=== PATIENT | female | born 1980 | race Caucasian/White ===

== ENCOUNTER 2022-10-05 17:30 | Emergency (ER) | payer OTHER, SELFPAY ==
[2022-10-05 17:39] VITALS: BP 147/99; PULSE 100; RESP 20; TEMP 36.8; O2SAT 98; BMI 28.9
--- NOTE | 2022-10-05 18:12 | CT_ITS ---
[address] [address] Patient Name: JUAN PABLO GREEN MRN: [id number] date: 1980 Sex: F Assigned Patient Location: ER Current Patient Location: .[facility] Accession/Order Number: [id number] Exam Date: 10/05/2022 19:05 Report Date: 10/05/2022 20:01 At the request of: EDGARDO AVALOS Procedure: CT abdomen pelvis w con EXAM: CT abdomen pelvis w con REASON FOR EXAM: Female, 42 years, Abdominal pain. TECHNIQUE: Computed tomography of the abdomen and pelvis is performed in the axial projection from the lung bases to the pubic symphysis. Sagittal and coronal reconstructed images are performed. Dose reduction techniques were achieved by using automated exposure control and/or adjustment of mA and/or KVP according to patient size and/or use of iterative reconstruction technique. A total of 100 mL Omnipaque 300 IV contrast was given. Study was performed without oral contrast. COMPARISON: None. FINDINGS: Lung bases: The lung bases are clear. There is no pleural effusion. The visualized portions of the heart are unremarkable. Liver: The liver has decreased attenuation consistent with steatosis. There is a prominent somewhat lobular cyst in the posterior right lobe of the liver, measuring approximately 5.8 x 5 cm. At least 2 additional smaller cysts are seen. There are several small enhancing lesions laterally within the right lobe of the liver, suggestive of hemangiomas. The liver appears enlarged. Gallbladder: The gallbladder is normal. Spleen: The spleen is normal. Pancreas: The pancreas is normal. Adrenal glands: The adrenal glands are normal bilaterally. Right kidney: The kidney is normal in size. There are a few nonobstructing calculi within the right kidney, measuring up to 3 mm. No hydronephrosis. Left kidney: The kidney is normal in size. There are several nonobstructing calculi within the left kidney, the largest measuring approximately 3 mm. No hydronephrosis. Stomach: The stomach is normal. Small bowel: The small bowel is normal. Large bowel: The colon is normal. Appendix: The appendix is visualized, and is normal. Aorta: The aorta is normal. IVC: The IVC is normal. Retroperitoneum: Normal retroperitoneum. Bladder: The bladder is normal. Pelvic organs: Normal uterus. Abdominal wall: Normal abdominal wall. Osseous structures: Normal bony structures. CT/CT abdomen pelvis w con IMPRESSION: No bowel obstruction or acute renal pathology. Normal appendix. Hepatic steatosis and hepatomegaly. There are several low-attenuation lesions within the liver likely representing cysts. There are several small enhancing lesions laterally within the right lobe of the liver which may represent hemangiomas. This can be further characterized by MRI. Electronically authenticated by: JORGE A RIVERO Date: 10/05/2022 20:01
--- NOTE | 2022-10-05 18:28 | ED_ITS ---
HPI - Abdominal Pain General Chief Complaint: Abdominal Pain Stated Complaint: Adbominal Pain Time Seen by Provider: 10/05/22 17:47 Source: patient Mode of arrival: walk-in Limitations: no limitations History of Present Illness HPI narrative: patient is a 42-year-old female who presents to the emergency department for the evaluation of diffuse pain in the lower abdomen. She states for the last 3-4 hours she has had pain from her belly button down . She describes the pain as razor blades . She states she had similar pain several years ago but no cause for the pain was found. She was treated for irritable bowel syndrome in the past but states she has not had any diarrhea with her symptoms today. She had a normal bowel movement this morning. She has had no fevers. She reports nausea and states since the pain has started she has been breathing fast and feels some tightness in her chest. She states the low abdominal pain radiates to the back, she has a history of kidney stones but states this does not feel similar. No medications taken prior to arrival. She has had no previous abdominal surgeries and is not concerned for . Related Data Home Medications Medication Instructions Recorded Confirmed Saccharomyces boulardii 250 mg 250 mg PO BID 10/05/22 10/05/22 capsule (Florastor) famotidine 20 mg tablet 20 mg PO Q12H 10/05/22 10/05/22 hydrochlorothiazide 12.5 mg tablet 12.5 mg PO Q12H 10/05/22 10/05/22 losartan 25 mg tablet 25 mg PO DAILY 10/05/22 10/05/22 Previous Rx's Medication Instructions Recorded dicyclomine 20 mg tablet 20 mg PO QID PRN abdominal pain 10/05/22 #12 tabs ketorolac 10 mg tablet 10 mg PO TID PRN pain #10 tabs 10/05/22 ondansetron 4 mg disintegrating 4 mg PO Q6H PRN nausea and 10/05/22 tablet vomiting #12 tabs Allergies Allergy/AdvReac Type Severity Reaction Status Date / Time buspirone [From BuSpar] Allergy Intermediate Agitated Verified 10/05/22 17:44 topiramate [From Topamax] Allergy Intermediate Verified 10/05/22 17:44 tramadol Allergy Intermediate Confusion Verified 10/05/22 17:44 Review of Systems ROS Constitutional Denies: fever or chills Ears, nose, mouth, and throat Denies: throat pain Cardiovascular Reports: chest pain Respiratory Denies: shortness of breath or cough Gastrointestinal Reports: abdominal pain and nausea; Denies: vomiting or diarrhea Genitourinary Denies: painful urination Musculoskeletal Reports: back pain; Denies: neck pain Integumentary/Breast Denies: rash Neurological Denies: headache Hematologic/Lymphatic Denies: easy bruising Exam Narrative Exam Narrative: Gen.: Awake, alert, in no distress Head: Normocephalic, atraumatic ENT: Moist mucous membranes Respiratory: No respiratory distress, lungs clear bilaterally Cardio: Regular rate and rhythm Gastrointestinal: Abdomen is soft, nondistended and diffusely mildly tender to palpation across the bilateral lower quadrants and suprapubic abdomen. No guarding or rebound Extremities: Moves extremities equally Psych: Normal mood and affect Neuro: No focal neuro deficit Skin: Warm, dry, intact Constitutional Vital Signs, click to edit/add: Last Vital Signs Temp 98.2 F 10/05/22 17:39 Pulse 74 10/05/22 19:25 Resp 16 10/05/22 19:25 BP 129/93 H 10/05/22 19:25 Pulse Ox 96 10/05/22 19:25 O2 Del Method Room Air 10/05/22 19:25 Course Vital Signs Vital signs: Vital Signs Temperature 98.2 F 10/05/22 17:39 Pulse Rate 100 H 10/05/22 17:39 Respiratory Rate 20 10/05/22 17:39 Blood Pressure 147/99 H 10/05/22 17:39 Pulse Oximetry 98 10/05/22 17:39 Oxygen Delivery Method Room Air 10/05/22 17:39 Temperature 98.2 F 10/05/22 17:39 Pulse Rate 74 10/05/22 19:25 Respiratory Rate 16 10/05/22 19:25 Blood Pressure 129/93 H 10/05/22 19:25 Pulse Oximetry 96 10/05/22 19:25 Oxygen Delivery Method Room Air 10/05/22 19:25 MDM - Abdominal Pain MDM Narrative Medical decision making narrative: on arrival to the Emergency Room, the patient was treated with IV fluids, morphine, Zofran, Toradol, Levsin. Pain and nausea improved. She had one episode of emesis prior to medication administration. Lab studies are stable although the patient has minimal leukocytosis and minimal elevation of LFTs. bilirubin and lipase are normal. She has no tenderness of the right upper quadrant. CT of the abdomen and pelvis was performed showing the patient has liver hemangioma and liver cysts but no evidence of acute process. abdomen is soft and benign on recheck at discharge, vital signs within normal limits. Patient will be discharged to follow-up with PCP. Return to the emergency department if symptoms change or worsen. Medical Records Attestation: I reviewed the patient's medical records. Lab Data Attestation: I reviewed the patient's lab results. Labs: Lab Results 10/05/22 Range/Units 18:00 WBC 13.3 H (4.0-11.0) 10^3/uL RBC 4.29 (4.20-5.40) 10^6/uL Hgb 15.0 (12.0-16.0) g/dL Hct 43.1 (36.0-48.0) % MCV 100.5 H (81.0-99.0) fL MCH 35.0 H (26.7-34.0) pg MCHC 34.8 (29.9-35.2) g/dL RDW 13.2 (11.0-15.0) % Plt Count 344 (150-450) 10^3/uL MPV 9.7 (9.5-13.5) fL Neut % (Auto) 64.3 (43.0-75.0) % Lymph % (Auto) 27.8 (20.5-60.0) % Dolores % (Auto) 5.8 (1.7-12.0) % Eos % (Auto) 1.2 (0.9-7.0) % Baso % (Auto) 0.4 (0.2-2.0) % Neut # (Auto) 8.5 H (1.4-6.5) 10^3/uL Lymph # (Auto) 3.7 (1.2-3.8) 10^3/uL Dolores # (Auto) 0.8 (0.3-0.8) 10^3/uL Eos # (Auto) 0.2 (0.0-0.7) 10^3/uL Baso # (Auto) 0.1 (0.0-0.1) 10^3/uL Abs Immat Gran (auto) 0.06 H (0.00-0.03) 10^3/uL Imm/Tot Granulo (auto) 0.5 (0.0-0.5) % Sodium 141 (136-145) mmol/L Potassium 3.2 L (3.5-5.1) mmol/L Chloride 105 (98-107) mmol/L Carbon Dioxide 25.4 (21.0-32.0) mmol/L Anion Gap 13.8 BUN 11.0 (7.0-18.0) mg/dL Creatinine 0.90 (0.55-1.02) mg/dL Est GFR ( Amer) >60 (>=60) Est GFR (Non-Af Amer) >60 (>=60) BUN/Creatinine Ratio 12.2 Glucose 96 (74-106) mg/dL Lactate 1.3 (0.4-2.0) mmol/L Calcium 8.5 (8.5-10.1) mg/dL Total Bilirubin 0.2 (0.2-1.0) mg/dL AST 57 H (15-37) U/L ALT 82 H (14-59) U/L Alkaline Phosphatase 48 (46-116) U/L Troponin I High Sens <4.0 L (4.0-51.3) pg/mL Total Protein 7.0 (6.4-8.2) g/dL Albumin 3.8 (3.4-5.0) g/dL Globulin 3.2 g/dL Albumin/Globulin Ratio 1.2 Lipase 106.0 (73.0-393.0) U/L Serum HCG, Qual Negative (NEGATIVE) Urine Color Yellow (YELLOW) Urine Clarity Clear (CLEAR) Urine pH 6.0 (5.0-9.0) Ur Specific [employer] 1.020 (1.005-1.025) Urine Protein Negative (NEG/TRACE) mg/dL Urine Glucose (UA) Negative (NEGATIVE) mg/dL Urine Ketones Negative (NEGATIVE) mg/dL Urine Occult Blood Small A (NEGATIVE) Urine Nitrite Negative (NEGATIVE) Urine Bilirubin Negative (NEGATIVE) Urine Urobilinogen 0.2 (0.2-1.0) EU/dL Ur Leukocyte Esterase Negative (NEGATIVE) Urine RBC 0-2 (0-2) #/HPF Urine WBC None seen (NONE SEEN) #/HPF Ur Squamous Epith Cells Moderate A (NONE/RARE) #/LPF Urine Crystals None seen (None Seen) #/HPF Urine Bacteria Trace A (NONE SEEN) #/HPF Urine Casts None seen (NONE SEEN) #/LPF Urine Mucus None seen (NONE SEEN) Ur Culture Indicated? No Imaging Data CT scan - abdomen: Attestation: I have reviewed the pertinent imaging results. Radiologist's impression: Procedure: CT abdomen pelvis w con EXAM: CT abdomen pelvis w con REASON FOR EXAM: Female, 42 years, Abdominal pain. TECHNIQUE: Computed tomography of the abdomen and pelvis is performed in the axial projection from the lung bases to the pubic symphysis. Sagittal and coronal reconstructed images are performed. Dose reduction techniques were achieved by using automated exposure control and/or adjustment of mA and/or KVP according to patient size and/or use of iterative reconstruction technique. A total of 100 mL Omnipaque 300 IV contrast was given. Study was performed without oral contrast. COMPARISON: None. FINDINGS: Lung bases: The lung bases are clear. There is no pleural effusion. The visualized portions of the heart are unremarkable. Liver: The liver has decreased attenuation consistent with steatosis. There is a prominent somewhat lobular cyst in the posterior right lobe of the liver, measuring approximately 5.8 x 5 cm. At least 2 additional smaller cysts are seen. There are several small enhancing lesions laterally within the right lobe of the liver, suggestive of hemangiomas. The liver appears enlarged. Gallbladder: The gallbladder is normal. Spleen: The spleen is normal. Pancreas: The pancreas is normal. Adrenal glands: The adrenal glands are normal bilaterally. Right kidney: The kidney is normal in size. There are a few nonobstructing calculi within the right kidney, measuring up to 3 mm. No hydronephrosis. Left kidney: The kidney is normal in size. There are several nonobstructing calculi within the left kidney, the largest measuring approximately 3 mm. No hydronephrosis. Stomach: The stomach is normal. Small bowel: The small bowel is normal. Large bowel: The colon is normal. Appendix: The appendix is visualized, and is normal. Aorta: The aorta is normal. IVC: The IVC is normal. Retroperitoneum: Normal retroperitoneum. Bladder: The bladder is normal. Pelvic organs: Normal uterus. Abdominal wall: Normal abdominal wall. Osseous structures: Normal bony structures. IMPRESSION: No bowel obstruction or acute renal pathology. Normal appendix. Hepatic steatosis and hepatomegaly. There are several low-attenuation lesions within the liver likely representing cysts. There are several small enhancing lesions laterally within the right lobe of the liver which may represent hemangiomas. This can be further characterized by MRI. Electronically authenticated by: JORGE A RIVERO Date: 10/05/2022 20:01 Discharge Plan Discharge Chief Complaint: Abdominal Pain Clinical Impression: Abdominal pain Patient Disposition: Home, Self-Care Time of Disposition Decision: 20:09 Condition: Good Prescriptions / Home Meds: New ketorolac 10 mg tablet 10 mg PO TID PRN (Reason: pain) Qty: 10 0RF dicyclomine 20 mg tablet 20 mg PO QID PRN (Reason: abdominal pain) Qty: 12 0RF ondansetron 4 mg tablet,disintegrating 4 mg PO Q6H PRN (Reason: nausea and vomiting) Qty: 12 0RF No Action famotidine 20 mg tablet 20 mg PO Q12H hydrochlorothiazide 12.5 mg tablet 12.5 mg PO Q12H losartan 25 mg tablet 25 mg PO DAILY Saccharomyces boulardii [Florastor] 250 mg capsule 250 mg PO BID Instructions: Acute Abdominal Pain (ED) Stand Alone Forms: Portal Instructions Referrals: Physician,Non-Staff, MD [Primary Care Provider] - 1 week
[2022-10-05 18:32] LABS: Basophils Absolute Auto 0.1 10^3/uL (0.0-0.1); Basophils Percent Auto 0.4 % (0.2-2.0); Eosinophils Absolute Auto 0.2 10^3/uL (0.0-0.7); Eosinophils Percent Auto 1.2 % (0.9-7.0); Hematocrit 43.1 % (36.0-48.0); Immature Granulocytes Abs Auto 0.06 10^3/uL (0.00-0.03); Immature Granulocytes Pct Auto 0.5 % (0.0-0.5); Lymphocytes Absolute Auto 3.7 10^3/uL (1.2-3.8); Lymphocytes Percent Auto 27.8 % (20.5-60.0); Mean Corpuscular HGB Conc 34.8 g/dL (29.9-35.2); Mean Corpuscular Volume 100.5 fL (81.0-99.0); Mean Platelet Volume 9.7 fL (9.5-13.5); Monocytes Absolute Auto 0.8 10^3/uL (0.3-0.8); Monocytes Percent Auto 5.8 % (1.7-12.0); Neutrophils Absolute Auto 8.5 10^3/uL (1.4-6.5); Neutrophils Percent Auto 64.3 % (43.0-75.0); Platelet Count 344 10^3/uL (150-450); Red Blood Count 4.29 10^6/uL (4.20-5.40); Red Cell Distribution Width 13.2 % (11.0-15.0); White Blood Count 13.3 10^3/uL (4.0-11.0)
[2022-10-05 18:42] LABS: Bilirubin Urine NEGATIVE (NEGATIVE); Blood Urine SMALL (NEGATIVE); Clarity Urine CLEAR (CLEAR); Color Urine YELLOW (YELLOW); Glucose Urine UA NEGATIVE (NEGATIVE); Ketones Urine NEGATIVE (NEGATIVE); Leukocyte Esterase Urine NEGATIVE (NEGATIVE); Nitrite Urine NEGATIVE (NEGATIVE); Protein Urine NEGATIVE (NEG/TRACE); Urobilinogen Urine 0.2 EU/dL (0.2-1.0)
[2022-10-05 18:44] LABS: HCG Qualitative NEGATIVE (NEGATIVE)
[2022-10-05 18:45] LABS: Urine Microscopic Indicated YES
[2022-10-05 18:50] LABS: Lactate/Lactic Acid 1.3 mmol/L (0.4-2.0); Troponin I High Sensitivity <4.0 pg/mL (4.0-51.3)
[2022-10-05 18:51] LABS: WBC Urine NONE SEEN #/HPF (NONE SEEN)
[2022-10-05 18:52] LABS: Bacteria Urine TRACE #/HPF (NONE SEEN); Cast Seen? NONE SEEN #/LPF (NONE SEEN); Crystals Seen? None Seen #/HPF (None Seen); Mucus Urine NONE SEEN (NONE SEEN); RBC Urine 0-2 #/HPF (0-2); Squamous Epithelial Cell Urine MODERATE #/LPF (NONE/RARE); Urine Culture Indicated NO
[2022-10-05] MEDS: MORPHINE SULFATE 2 MG/ML SYRINGE 4 MG IV (18:53)
[2022-10-05] MEDS: HYOSCYAMINE SULFATE 0.125 MG TAB.SUBL SL (18:54)
[2022-10-05] MEDS: ONDANSETRON PF 4 MG/2 ML VIAL IV (18:54)
[2022-10-05] MEDS: KETOROLAC TROMETHAMINE 30 MG/ML VIAL IVP (18:54)
[2022-10-05] MEDS: 0.9 % SODIUM CHLORIDE 1,000 ML 999 ML IV (18:54)
[2022-10-05 18:57] LABS: Alanine Aminotransferase 82 U/L (14-59); Albumin Globulin Ratio 1.2; Albumin Level 3.8 g/dL (3.4-5.0); Alkaline Phosphatase 48 U/L (46-116); Anion Gap 13.8; Aspartate Amino Transferase 57 U/L (15-37); BUN Creatinine Ratio 12.2; Bilirubin Total 0.2 mg/dL (0.2-1.0); Calcium 8.5 mg/dL (8.5-10.1); Carbon Dioxide 25.4 mmol/L (21.0-32.0); Chloride 105 mmol/L (98-107); Estimated GFR (African America >60 (>=60); Estimated GFR (Non-African Ame >60 (>=60); Globulin 3.2 g/dL; Glucose 96 mg/dL (74-106); Potassium 3.2 mmol/L (3.5-5.1); Sodium 141 mmol/L (136-145)
[2022-10-05 19:25] VITALS: BP 129/93; PULSE 74; RESP 16; O2SAT 96
[2022-10-05] MEDS: POTASSIUM CHLORIDE 10 MEQ ER TABLET 40 MEQ PO (19:36)
== END 2022-10-05 20:35 | disposition home or self-care (01) ==
PROVIDERS: Physician Assistant; Emergency Provider Emergency Medicine
DX: R10.9 Unspecified abdominal pain (principal); Z79.899 Other long term (current) drug therapy; Z87.442 Personal history of urinary calculi
CPT/HCPCS: 36415; 74177; 80053; 81001; 81003; 83605; 83690; 84484; 84703; 85025; 96374; 96375; 99285; Q9967